=== PATIENT | male | born 1960 | race Caucasian/White ===

== ENCOUNTER 2018-07-09 05:41 | Day surgery (SDC) | payer MEDICARE, OTHER ==
[2018-07-02 11:57] VITALS: BMI 34.2
--- NOTE | 2018-07-08 13:28 | HP ---
HISTORY OF PRESENT ILLNESS: Mr. Ha is a 57-year-old man who presents for evaluation of really what amounts for the left upper extremity C6 pains as well as some overlap of what appears to be carpal tunnel syndrome. He has treated this conservatively for sometime and reports now with hopes to discuss surgical intervention. PAST MEDICAL HISTORY: Significant for migraine headaches and seasonal allergies. PAST SURGICAL HISTORY: Multiple back surgeries. CURRENT MEDICATIONS: Claritin and esomeprazole. ALLERGIES: CIPRO. PHYSICAL EXAMINATION: NEUROLOGIC: The patient is alert and oriented x3. Gait is normal. No ataxia. Upper extremity motor exam is normal. He has some sensory disturbance of the hand and upper extremity. Limited cervical range of motion. ASSESSMENT: Cervical radiculopathy and carpal tunnel syndrome. PLAN: Dr. Alford met with the patient, reviewed imaging, and advocated for left carpal tunnel release. He explained to the patient the risks, benefits, and alternatives to the procedure. The patient expressed understanding and elected to move forward with surgery as discussed. I do believe the patient is mentally competent and capable of making medical decisions for himself. We will move forward with surgery as planned. Job ID: [id number]
[2018-07-09] MEDS ORDERED: Lidocaine 1% w/Epinephrine 1:100K 20 ML VIAL ONE (06:36)
[2018-07-09] MEDS ORDERED: Fentanyl 100 MCG/2 ML VIAL ONE (06:44)
[2018-07-09] MEDS ORDERED: CEFAZOLIN 2 GM/50 ML BAG ONE (06:55)
--- NOTE | 2018-07-09 09:15 | OP ---
DATE OF PROCEDURE: 07/09/2018 PRODUCTION SUPPORT CONSULTANT: Jean Macedo PA-C. INDICATION: Pain and numbness. DIAGNOSIS: Left carpal tunnel syndrome. PROCEDURE PERFORMED: Left carpal tunnel release. ANESTHESIA: General and local. DESCRIPTION OF PROCEDURE: The patient was brought into the operating room and placed under general anesthesia. His arm was extended perpendicular to his body. He was prepped up to the level of the axilla. A linear incision was planned across the crease of the wrist in line with the long axis of the fourth digit. This area was infiltrated with lidocaine. Following an appropriate operative pause, the incision was created. A self-retaining retractor was placed. The carpal tunnel ligament was identified and subsequently incised. The incision was extended in a proximal-distal direction until the carpal tunnel elements were decompressed. The wound was irrigated. Hemostasis was maintained throughout. The wound was then closed in a single-layer technique. The procedure came to an end without known complication. Job ID: [id number]
[2018-07-09] MEDS ORDERED: Succinylcholine Chloride 20 MG/ML 10 ml SYRINGE FS ONE (13:56)
[2018-07-09] MEDS ORDERED: Dexamethasone 20 MG/5 ML VIAL ONE (13:56)
[2018-07-09] MEDS ORDERED: Ondansetron PF 4 MG/2 ML Vial ONE (13:56)
[2018-07-09] MEDS ORDERED: PROPOFOL 200 MG/20 ML VIAL ONE (13:56)
[2018-07-09] MEDS ORDERED: Lidocaine 1% PF 5 ML VIAL ONE (13:56)
== END 2018-07-09 10:01 | disposition home or self-care (01) ==
LOC: SDC 05:41
PROVIDERS: ATTEND Neurological Surgery
PROC: 01N50ZZ Release Median Nerve, Open Approach (ICD-10-PCS; principal; 2018-07-09)
DX: G56.02 Carpal tunnel syndrome, left upper limb (principal); M54.12 Radiculopathy, cervical region; G43.909 Migraine, unspecified, not intractable, without status migrainosus; J30.2 Other seasonal allergic rhinitis; Z79.899 Other long term (current) drug therapy; Z88.1 Allergy status to other antibiotic agents; Z98.890 Other specified postprocedural states
CPT/HCPCS: J1100; J2001; J2405; J2704; J3010

== ENCOUNTER → 2024-05-04 | Day surgery (SDC) | payer OTHER ==
[2024-05-03 09:39] VITALS: BMI 34.9
[~2024-05-04] MED LIST: Bupivacaine PF 0.5% 30 ML VIAL ONE; CEFAZOLIN 2 GM VIAL ONE; Cefepime 2 GM VIAL ONE; Dexamethasone 20 MG/5 ML VIAL ONE; EPINEPHrine 1 MG/ML VIAL ONE; Lidocaine 2% PF 5 ML VIAL ONE; Ondansetron PF 4 MG/2 ML Vial ONE; PROPOFOL 200 MG/20 ML VIAL ONE; Rocuronium Bromide 10 MG/ML (10ML VIAL) ONE; SUGAMMADEX SODIUM 200 MG/2 ML VIAL ONE; Tamsulosin HCl 0.4 MG CAP ONE; fentaNYL 50 mcg/mL 1 mL Vial ONE; fentaNYL PF 100 MCG/2 ML SYRINGE ONE
[2024-05-16 09:15] LABS: Anion Gap 12 mmol/L (10-20); BUN (Urea Nitrogen) 15 mg/dL (8.4-25.7); Calc. Creatinine Clearance 126 mL/min (70-130); Carbon Dioxide 24 mmol/L (23-31); Chloride 107 mmol/L (98-107); Estimated GFR 82; Sodium 139 mmol/L (136-145)
[2024-05-16 09:16] LABS: Calcium 9.6 mg/dL (7.6-10.4); Glucose 111 mg/dL (80-115); Hemoglobin 14.4 g/dL (14.0-18.0); Red Blood Cell (RBC) Count 4.91 mill/uL (4.70-6.10)
[2024-05-16 09:17] LABS: #Basophils 0.05 10x3/uL (0.0-0.2); %Basophils 0.5 % (0.0-1.0); %Eosinophils 3.4 % (0.0-10.0); %Lymphocytes 23.9 % (21.0-51.0); %Monocytes 7.2 % (0.0-10.0); %Neutrophils 64.7 % (42.0-75.0); Hematocrit 43.2 % (42.0-52.0); Mean Corpuscular HGB CONC 33.3 g/dL (32.0-36.0); Mean Corpuscular Hemoglobin 29.3 pg (27.0-31.0); Mean Platelet Volume 9.5 fL (7.4-10.4); Platelet Count 291 10x3/uL (130-400)
== END ==
LOC: SDC 08:00
PROVIDERS: ATTEND Neurological Surgery
PROC: 00NY0ZZ Release Lumbar Spinal Cord, Open Approach (ICD-10-PCS; principal; 2024-05-04)
DX: M48.062 Spinal stenosis, lumbar region with neurogenic claudication (principal); M54.16 Radiculopathy, lumbar region; I10 Essential (primary) hypertension; I42.9 Cardiomyopathy, unspecified; I48.0 Paroxysmal atrial fibrillation; F41.9 Anxiety disorder, unspecified; Z87.891 Personal history of nicotine dependence; Z88.1 Allergy status to other antibiotic agents; Z79.1 Long term (current) use of non-steroidal anti-inflammatories (NSAID); Z79.01 Long term (current) use of anticoagulants; Z79.899 Other long term (current) drug therapy
CPT/HCPCS: 80048; 85025; J0171; J0665; J0692; J1100; J2405; J2704; J3010